=== PATIENT | female | born 1940 | race Caucasian/White ===

== ENCOUNTER → 2017-11-17 09:46 | Outpatient (CLI) | payer MEDICARE, OTHER, SELFPAY ==
--- NOTE | 2017-11-17 10:00 | MM_ITS ---
Bilateral digital screening mammogram with CAD MM Dig screening mamm BI w/CAD . ORDERING PHYSICIAN : Mike Dominguez MD PATIENT AGE: 77 years GENDER: Female COMPARISON: Previous: 2015 and March 2015 and February 2014 bilateral mammogram INDICATION: No hormones. No new complaints. Previous biopsy left breast scar evident Family history. niece with breast cancer TECHNIQUE: Standard CC and MLO images were obtained. R2 CAD reviewed. FINDINGS: Generalized fatty replacement with scattered moderate areas of residual glandular density . RIGHT BREAST:. Stable. There [place] of minimal residual stable glandular tissue. LEFT BREAST:Stable appearance no new finding.. Minor residual linear tissue retroareolar region IMPRESSION: Stable bilateral mammogram with no new areas of significant concern. BI-RADS Category: 2 Benign Finding(s) RECOMMENDED FOLLOW-UP: 1YR - 1 YEAR FOLLOW-UP (A letter has been sent to the patient regarding results of the study.)
== END ==
PROVIDERS: PCP Internal Medicine Adolescent Medicine; Visit Provider Internal Medicine Adolescent Medicine
DX: Z12.31 Encounter for screening mammogram for malignant neoplasm of breast (principal)
CPT/HCPCS: 77067

== ENCOUNTER → 2018-01-23 08:19 | Outpatient (CLI) | payer MEDICARE, OTHER, SELFPAY ==
[2018-01-23 13:40] LABS: Basophils % 0.3 % (0.1-2.0); Eosinophils # 0.3 K/mm3 (0.0-0.4); Eosinophils % 3.7 % (0.1-12.0); Hematocrit 34.1 % (37.0-47.0); Hemoglobin 10.7 g/dL (12.2-16.2); Lymphocytes # 2.1 K/mm3 (0.7-4.5); Lymphocytes % 29.6 K/mm3 (10-50); Mean Corpuscular HGB Conc 31.5 g/dL (31.8-35.4); Mean Corpuscular Hemoglobin 29.6 pg (27.0-31.2); Mean Corpuscular Volume 94.1 fl (81-99); Mean Platelet Volume 8.5 fl (7.4-10.4); Monocytes # 0.4 K/mm3 (0.1-1.0); Monocytes % 5.6 % (1.7-9.3); Neutrophils # 4.3 K/mm3 (1.8-7.8); Neutrophils % 60.9 % (37.0-80.0); Platelet Count 241 K/mm3 (142-424); Red Blood Count 3.62 M/mm3 (4.20-5.40)
[2018-01-23 13:46] LABS: Anion Gap 11.9 mEq/L (5-15); Blood Urea Nitrogen 25 mg/dL (7-18); Carbon Dioxide 30 mmol/L (21.0-32.0); Chloride 108 mmol/L (98-107); Creatinine,Serum 1.06 mg/dL (0.55-1.02); Estimated Glomerular Filt Rate 50 ml/min (>60); GFR (African American) 61 ML/MIN (>60); Glucose 100 mg/dL (74-106); Potassium 3.9 mmoL/L (3.5-5.1); Sodium 146 mmol/L (136-145)
[2018-01-23 14:00] LABS: Thyroid Stimulating Hormone 0.59 uIU/ml (0.358-3.740)
== END ==
PROVIDERS: Internal Medicine Adolescent Medicine; Visit Provider Internal Medicine
DX: D64.9 Anemia, unspecified (principal); E03.9 Hypothyroidism, unspecified
CPT/HCPCS: 36415; 80048; 84443; 85025

== ENCOUNTER → 2018-01-25 12:24 | Outpatient (CLI) | payer MEDICARE, OTHER, SELFPAY ==
--- NOTE | 2018-01-25 12:44 | XR_ITS ---
XR chest 2V HISTORY: ITS.REASON: ANEMIA ORDERING PHYSICIAN: Beau Mistry MD PATIENT AGE: 77 years COMPARISON: 03/29/2017 FINDINGS: Cardiac size is upper limits of normal. No CHF. No lobar consolidation or collapse. Calcified nodes are present in the subcarinal region. No acute bony anomalies. IMPRESSION: As above, no acute finding.
[2018-01-25 15:26] LABS: Ferritin 60 ng/mL (8-388); Free T4 (Free Thyroxine) 1.29 ng/dl (0.76-1.46); Thyroid Stimulating Hormone 0.37 uIU/ml (0.358-3.740)
[2018-01-26 08:25] LABS: Iron 93 ug/dL (27-139); UIBC 235 ug/dL (118-369)
[2018-01-27 15:19] LABS: Erythropoietin 17.8 mIU/mL (2.6-18.5); Iron Saturation 28 % (15-55)
== END ==
PROVIDERS: PCP Internal Medicine Adolescent Medicine; Visit Provider Internal Medicine
DX: D64.9 Anemia, unspecified (principal)
CPT/HCPCS: 36415; 71046; 82668; 82728; 83550; 84439; 84443

== ENCOUNTER → 2018-02-13 09:59 | Outpatient (CLI) | payer MEDICARE, OTHER, SELFPAY ==
--- NOTE | 2018-02-13 10:30 | CA_ITS ---
PROCEDURE: 2-D M-mode and color Doppler study INDICATIONS FOR THE TEST: Chest pain COPD Heart Murmur Tobacco Smoking Palpitations Fatigue Syncope Edema HypertensionXDiabetes Mellitus Rheumatic Fever SOB JAIMES Obesity Hyperlipidemia Family History HD Additional History CARDIOMEGALY PATIENT INFORMATION HEIGHT: 60 WEIGHT:151 GENDER: Female B/P:187/87 2-D/M-MODE INTERPRETATION: 2-D MEASUREMENTS OBSERVED VALUES IN CMS Right Ventricular Dimension (RVDd) 2.5 Interventricular Septum (Thickness)(IVsd) .9 Left Ventricular Internal Dimensions(LVIDd) 5.0 Left Ventricular Posterior Wall (Thickness)(LVPWd) 1.0 Aortic Root 3.5 Aortic Cusp Separation 1.8 Left Atrial Dimensions (LAD) 2.5 2D 1. Technically difficult study because of the patient's factor and poor acoustic windows 2. The left atrium is mildly enlarged, left ventricle is normal size, there is mild concentric left ventricular hypertrophy, visually estimated ejection fraction 50% with no obvious regional wall motion abnormality, endocardial subsequent poorly visualized. 3. The right atrium and right ventricle are relatively normal size and function. 4. The aortic valve is minimally thickened and fibrosed. 5. The mitral and tricuspid valve leaflets are minimally thickened. 6. No significant pericardial effusion noted. 7. Pulmonic valve is poorly visualized. DOPPLER INTERROGATION: Doppler interrogation of the aortic, mitral and tricuspid valvular presence of mild mitral and tricuspid regurgitation, tricuspid and jet velocity insufficient for calculation of the right ventricular systolic pressure. Diastolic parameters are inconclusive. CONCLUSION: 1. Technically difficult study because of the patient's factor and poor acoustic Windows endocardial surface of poorly visualized. 2. Mildly enlarged left atrium, normal left ventricular size, mild concentric left ventricular hypertrophy, visually estimated ejection fraction 50% with no obvious regional wall motion abnormality, diastolic parameters are inconclusive. 3. Mild mitral and tricuspid regurgitation 4. No significant pericardial effusion noted.
--- NOTE | 2018-02-13 11:01 | XR_ITS ---
XR DEXA axial skeleton COMPARISON: None HISTORY: Patient is postmenopausal and takes vitamin D and Fosamax TECHNIQUE: DEXA scanning lumbar spine and hips FINDINGS: The areas BMD lumbar spine L1-L4 is 1.133 g centimeters squared with a T score of -0.4. The total BMD left hip is 0.794 g centimeters square with T score of -1.7. The left femoral neck is 0.777 g centimeters squared and the T score of -1.9. Values for the right hip are similar. IMPRESSION: Normal lumbar spine, findings in the osteopenia range for both hips, consider follow-up study in 2 years
== END ==
PROVIDERS: PCP Internal Medicine Adolescent Medicine; Visit Provider Internal Medicine Adolescent Medicine
DX: I51.7 Cardiomegaly (principal); Z78.0 Asymptomatic menopausal state; Z13.820 Encounter for screening for osteoporosis
CPT/HCPCS: 77080; 93306

== ENCOUNTER → 2018-03-06 09:49 | Outpatient (CLI) | payer MEDICARE, OTHER, SELFPAY ==
[2018-03-06 10:59] VITALS: PULSE 60; PULSE 64
== END ==
PROVIDERS: PCP Internal Medicine Adolescent Medicine; Visit Provider Internal Medicine Adolescent Medicine
DX: J84.10 Pulmonary fibrosis, unspecified (principal)
CPT/HCPCS: 94060; 94640; 94726; 94729

== ENCOUNTER → 2018-03-07 07:18 | Outpatient (CLI) | payer MEDICARE, OTHER, SELFPAY ==
[2018-03-07 13:42] LABS: Basophils % 0.5 % (0.1-2.0); Eosinophils # 0.2 K/mm3 (0.0-0.4); Eosinophils % 3.1 % (0.1-12.0); Hematocrit 34.8 % (37.0-47.0); Hemoglobin 10.9 g/dL (12.2-16.2); Lymphocytes # 1.7 K/mm3 (0.7-4.5); Lymphocytes % 23.4 K/mm3 (10-50); Mean Corpuscular HGB Conc 31.2 g/dL (31.8-35.4); Mean Corpuscular Hemoglobin 29.8 pg (27.0-31.2); Mean Corpuscular Volume 95.6 fl (81-99); Mean Platelet Volume 8.7 fl (7.4-10.4); Monocytes # 0.3 K/mm3 (0.1-1.0); Monocytes % 4.6 % (1.7-9.3); Neutrophils # 4.8 K/mm3 (1.8-7.8); Neutrophils % 68.4 % (37.0-80.0); Platelet Count 233 K/mm3 (142-424); Red Blood Count 3.64 M/mm3 (4.20-5.40); Red Cell Distribution Width 13.6 % (11.5-17.5)
[2018-03-07 13:47] LABS: Alanine Aminotransferase 20 U/L (12-78); Albumin Level 3.4 gm/dL (3.4-5.0); Alkaline Phosphatase 64 U/L (46-116); Aspartate Amino Transferase 18 U/L (15-37); Bilirubin,Total 0.3 mg/dL (0.2-1.0); Blood Urea Nitrogen 19 mg/dL (7-18); Calcium 9.4 mg/dL (8.5-10.1); Carbon Dioxide 28 mmol/L (21.0-32.0); Chloride 107 mmol/L (98-107); Creatinine,Serum 0.99 mg/dL (0.55-1.02); Estimated Glomerular Filt Rate 54 ml/min (>60); GFR (African American) 66 ML/MIN (>60); Globulin 3.4 gm/dl (1.3-3.2); Glucose 109 mg/dL (74-106); Sodium 146 mmol/L (136-145); Total Protein,Serum 6.8 gm/dL (6.4-8.2)
[2018-03-10 12:41] LABS: Erythropoietin 20.3 mIU/mL (2.6-18.5)
== END ==
PROVIDERS: PCP Internal Medicine Adolescent Medicine; Visit Provider Internal Medicine
DX: D64.9 Anemia, unspecified (principal)
CPT/HCPCS: 36415; 80053; 82668; 85025

== ENCOUNTER → 2018-05-10 14:58 | Outpatient (CLI) | payer MEDICARE, OTHER, SELFPAY ==
--- NOTE | 2018-05-10 15:04 | XR_ITS ---
XR ankle LT min 3V HISTORY: ITS.REASON: ACUTE LT ANKLE PAIN ORDERING PHYSICIAN: Christal Holman PATIENT AGE: 78 years Comparison: None FINDINGS: There is a nondisplaced transverse fracture involving the distal shaft of the fibula. This is 4.7 cm proximal to the tip of the fibula. Incidental note is made of pes planus and post surgical changes with 2 screws within the second metatarsal. There is a small calcaneal spur. IMPRESSION: Nondisplaced transverse fracture distal fibular shaft
--- NOTE | 2018-05-10 15:04 | XR_ITS ---
XR foot LT min 3V HISTORY: ITS.REASON: ACUTE LT ANKLE PAIN ORDERING PHYSICIAN: Christal Holman PATIENT AGE: 78 years COMPARISON: None FINDINGS: Postsurgical changes are present involving the first metatarsal with 2 screws in proximal to mid shaft of the first metatarsal. There is minimal lateral angulation of the distal aspect of the first metatarsal. The distal aspect of the proximal phalanx of the fifth toe is missing and could be congenital or postsurgical. No acute fracture or dislocation. There is pes planus. IMPRESSION: 1. No acute finding. 2. Postsurgical change.
== END ==
PROVIDERS: PCP Internal Medicine Adolescent Medicine; Visit Provider Nurse Practitioner Family
DX: M25.572 Pain in left ankle and joints of left foot (principal)
CPT/HCPCS: 73610; 73630

== ENCOUNTER 2018-05-15 12:38 | Outpatient (RCR) | payer MEDICARE, OTHER, SELFPAY | END 2018-05-15 13:45 | disposition home or self-care (01) | LOC: PT 12:38 | PROVIDERS: Visit Provider Orthopaedic Surgery | DX: S82.425A Nondisplaced transverse fracture of shaft of left fibula, initial encounter for closed fracture | CPT/HCPCS: 97760 ==

== ENCOUNTER → 2018-06-13 13:47 | Outpatient (CLI) | payer MEDICARE, OTHER, SELFPAY ==
--- NOTE | 2018-06-13 13:49 | XR_ITS ---
XR ankle LT min 3V HISTORY: Follow-up fracture ITS.REASON: LEFT ANKLE FX ORDERING PHYSICIAN: Mohan Berry MD PATIENT AGE: 78 years Comparison: 05/10/2018 FINDINGS: Increasing callus formation is present at the distal shaft of the fibula consistent with healing nondisplaced fracture. 2 screws are present in the proximal aspect of the first metatarsal. IMPRESSION: Healing nondisplaced fracture distal shaft of the fibula
== END ==
PROVIDERS: PCP Internal Medicine Adolescent Medicine; Visit Provider Orthopaedic Surgery
DX: S82.892A Other fracture of left lower leg, initial encounter for closed fracture (principal)
CPT/HCPCS: 73610

== ENCOUNTER → 2018-07-03 07:47 | Outpatient (CLI) | payer MEDICARE, OTHER, SELFPAY ==
[2018-07-03 14:26] LABS: Basophils % 0.3 % (0.1-2.0); Eosinophils # 0.3 K/mm3 (0.0-0.4); Eosinophils % 3.7 % (0.1-12.0); Hematocrit 32.1 % (37.0-47.0); Hemoglobin 10.5 g/dL (12.2-16.2); Lymphocytes # 1.3 K/mm3 (0.7-4.5); Mean Corpuscular HGB Conc 32.7 g/dL (31.8-35.4); Mean Corpuscular Hemoglobin 29.7 pg (27.0-31.2); Mean Corpuscular Volume 90.6 fl (81-99); Mean Platelet Volume 8.8 fl (7.4-10.4); Monocytes # 0.3 K/mm3 (0.1-1.0); Platelet Count 245 K/mm3 (142-424); Red Blood Count 3.54 M/mm3 (4.20-5.40); Red Cell Distribution Width 13.9 % (11.5-17.5); White Blood Count 7.9 K/mm3 (4.8-10.8)
[2018-07-03 15:06] LABS: Alanine Aminotransferase 20 U/L (12-78); Albumin Level 3.2 gm/dL (3.4-5.0); Alkaline Phosphatase 86 U/L (46-116); Aspartate Amino Transferase 16 U/L (15-37); Bilirubin,Total 0.5 mg/dL (0.2-1.0); Blood Urea Nitrogen 23 mg/dL (7-18); Calcium 9.1 mg/dL (8.5-10.1); Carbon Dioxide 28 mmol/L (21.0-32.0); Chloride 106 mmol/L (98-107); Creatinine,Serum 1.07 mg/dL (0.55-1.02); Estimated Glomerular Filt Rate 49 ml/min (>60); GFR (African American) 60 ML/MIN (>60); Globulin 3.2 gm/dl (1.3-3.2); Glucose 111 mg/dL (74-106); Sodium 143 mmol/L (136-145); Total Protein,Serum 6.4 gm/dL (6.4-8.2)
[2018-07-05 10:57] LABS: Erythropoietin 21.2 mIU/mL (2.6-18.5)
== END ==
PROVIDERS: Visit Provider Internal Medicine
DX: D64.9 Anemia, unspecified (principal)
CPT/HCPCS: 36415; 80053; 82668; 85025

== ENCOUNTER → 2018-07-13 12:10 | Outpatient (CLI) | payer MEDICARE, OTHER, SELFPAY ==
--- NOTE | 2018-07-13 12:13 | XR_ITS ---
XR ankle LT min 3V HISTORY: Follow-up fracture ITS.REASON: Left ankle fracture ORDERING PHYSICIAN: Mohan Berry MD PATIENT AGE: 78 years Comparison: 06/13/2018 FINDINGS: Healing fracture is noted involving the distal shaft of the fibula. Callus formation is present and has increased. There remains good alignment of the fracture fragments. The ankle mortise does not appear widened. Mild pes planus. Calcaneal spurs once again noted in their are postsurgical changes of the first metatarsal. IMPRESSION: Healing distal fibular fracture with good alignment
== END ==
PROVIDERS: PCP Internal Medicine Adolescent Medicine; Visit Provider Orthopaedic Surgery
DX: S82.892A Other fracture of left lower leg, initial encounter for closed fracture (principal)
CPT/HCPCS: 73610

== ENCOUNTER 2018-07-13 13:25 | Outpatient (RCR) | payer MEDICARE, OTHER, SELFPAY | END 2018-07-13 13:26 | disposition home or self-care (01) | LOC: PT 13:25 | PROVIDERS: PCP Internal Medicine Adolescent Medicine; Visit Provider Orthopaedic Surgery | DX: S82.892A Other fracture of left lower leg, initial encounter for closed fracture (principal) | CPT/HCPCS: 97760 ==

== ENCOUNTER → 2018-08-09 12:17 | Outpatient (CLI) | payer MEDICARE, OTHER, SELFPAY ==
--- NOTE | 2018-08-09 12:21 | XR_ITS ---
XR ankle LT min 3V HISTORY: Follow-up fracture ITS.REASON: follow up; out of cam walker ORDERING PHYSICIAN: Severo Mcmanus MD PATIENT AGE: 78 years Comparison: 07/13/2018 FINDINGS: Healing nondisplaced fracture most distal shaft of the fibula. Fracture line may be slightly less apparent compared to the previous exam. There is good alignment with overlying callus formation. The ankle mortise does not appear widened. There is pes planus. Prior surgery of the first metatarsal. IMPRESSION: Healing nondisplaced fracture of the distal fibula
== END ==
PROVIDERS: PCP Internal Medicine Adolescent Medicine; Visit Provider Orthopaedic Surgery
DX: S82.892A Other fracture of left lower leg, initial encounter for closed fracture (principal)
CPT/HCPCS: 73610

== ENCOUNTER → 2018-09-12 13:38 | Outpatient (CLI) | payer MEDICARE, OTHER, SELFPAY ==
[2018-09-12 13:58] LABS: Blood Urea Nitrogen 25 mg/dL (7-18); Creatinine,Serum 1.09 mg/dL (0.55-1.02); Estimated Glomerular Filt Rate 48 ml/min (>60); GFR (African American) 59 ML/MIN (>60)
--- NOTE | 2018-09-12 14:27 | CT_ITS ---
CT chest w con HISTORY: Pulmonary fibrosis, chest pain, shortness of air ITS.REASON: PULMONARY FIBROSIS ORDERING PHYSICIAN: Mohan Cruz MD PATIENT AGE: 78 years COMPARISON: 06/09/2017 TECHNIQUE: Axial images obtained following the administration of 75 mL of Isovue 370 . Sagittal, and coronal reformatted images are also generated and reviewed. All CT scans at the facility use one or more dose reduction, viz: automated exposure control, ma/kV adjustment per patient size (including targeted exams where dose is matched to indication, i.e. head), or iterative reconstruction technique. FINDINGS: There are scattered small lymph nodes in the mediastinum measuring up to 1.4 x 1 cm. These are slightly more prominent than when compared to the previous study. Calcified subcarinal and right hilar lymph nodes are present as before. No evidence of thoracic aortic aneurysm or dissection. No central pulmonary embolus apparent. Normal heart size with no evidence of pericardial effusion. Calcified granuloma right lower lobe. There are scattered subpleural fibrotic changes in both lungs. These findings are somewhat progressed compared to the previous exam are most prominent in the lung bases. No lobar consolidation or collapse. No suspicious pulmonary nodules. Upper abdominal images are unremarkable. IMPRESSION: 1. Mild pulmonary fibrotic changes which appears slightly worse compared to the previous exam 2. Scattered small mediastinal lymph nodes slightly more prominent
--- NOTE | 2018-09-12 14:31 | HMH.ITSHM ---
Current Home Medications as stated by this patient Chelly Magallon or representative personal service. []SYNTHYROID,METFORMIN,ZEBETA
== END ==
PROVIDERS: PCP Internal Medicine Adolescent Medicine; Visit Provider Internal Medicine Adolescent Medicine
DX: J84.10 Pulmonary fibrosis, unspecified (principal)
CPT/HCPCS: 36415; 71260; 82565; 84520; Q9967

== ENCOUNTER → 2018-11-28 10:03 | Outpatient (POV) | payer MEDICARE, OTHER, SELFPAY | PROVIDERS: Visit Provider Internal Medicine | DX: Z00.00 Encounter for general adult medical examination without abnormal findings (principal) ==

== ENCOUNTER → 2019-01-23 08:30 | Outpatient (CLI) | payer MEDICARE, OTHER, SELFPAY ==
--- NOTE | 2019-01-23 08:35 | CT_ITS ---
CT chest wo con HISTORY: Shortness of air, pulmonary fibrosis ITS.REASON: PULMONARY FIBROSIS ORDERING PHYSICIAN: Mohan Brandon MD PATIENT AGE: 78 years COMPARISON: 09/12/2018 Technique: Axial images obtained without contrast. Sagittal, and coronal reformatted images are also generated and reviewed. All CT scans at the facility use one or more dose reduction, viz: automated exposure control, ma/kV adjustment per patient size (including targeted exams where dose is matched to indication, i.e. head), or iterative reconstruction technique. FINDINGS: There are scattered small mediastinal lymph nodes which are not significantly changed. Normal heart size without evidence of pericardial effusion. There is a small hiatal hernia. Small hilar lymph nodes are present. Some of the mediastinal and hilar nodes are calcified. There is mild ectasia of the distal descending thoracic aorta measuring 3.2 cm at the thoracic/abdominal aortic junction previously measuring approximately 2.7 cm.. No evidence of acute hemorrhage. Scattered areas peripheral pulmonary fibrotic changes are once again noted which are mostly unchanged. A new small area of fibrotic changes present in the right upper lobe posterior medially and may represent a small area of atelectasis or infiltrate as seen on axial image #23. There is a stable 3 mm nodule in the right upper lobe posteriorly. There is mild bronchiectasis in the lung bases. This is not significantly changed. IMPRESSION: 1. Mild pulmonary fibrotic changes overall not significant change. One small area of increased density is developed in the right upper lobe medially at the as ago esophageal recess and could be due to a small area of atelectasis or infiltrate versus a small area of fibrosis. Mild bronchiectasis in the lung bases unchanged 2. Mild ectasia of the lower thoracic aorta/thoracic abdominal aortic junction at 3.2 cm previously at 2.7 cm
[2019-01-23 10:00] VITALS: PULSE 70; PULSE 71
[2019-01-23 10:25] VITALS: BP 120/82; BP 140/86; PULSE 71; PULSE 92; RESP 16; RESP 20; O2SAT 84; O2SAT 94
== END ==
PROVIDERS: PCP Internal Medicine Adolescent Medicine; Visit Provider Internal Medicine
DX: R06.02 Shortness of breath (principal); J84.10 Pulmonary fibrosis, unspecified
CPT/HCPCS: 71250; 94060; 94618; 94640; 94726; 94729

== ENCOUNTER → 2019-03-13 11:53 | Outpatient (POV) | payer MEDICARE, OTHER, SELFPAY | PROVIDERS: Visit Provider Internal Medicine | DX: Z00.00 Encounter for general adult medical examination without abnormal findings (principal) ==

== ENCOUNTER 2019-08-27 09:45 | Outpatient (CLI) | payer MEDICARE, OTHER, SELFPAY ==
[2019-08-27 09:47] VITALS: BMI 27.1
[2019-08-27 10:07] LABS: Basophils % 0.6 % (0.1-2.0); Eosinophils # 0.2 K/mm3 (0.0-0.4); Hematocrit 36.6 % (37.0-47.0); Lymphocytes # 1.5 K/mm3 (0.7-4.5); Lymphocytes % 23.8 % (10-50); Mean Corpuscular Hemoglobin 29.7 pg (27.0-31.2); Mean Corpuscular Volume 98.8 fl (81-99); Mean Platelet Volume 8.4 fl (7.4-10.4); Monocytes # 0.4 K/mm3 (0.1-1.0); Monocytes % 5.7 % (1.7-9.3); Neutrophils # 4.2 K/mm3 (1.8-7.8); Neutrophils % 66.9 % (37.0-80.0); Platelet Count 193 K/mm3 (142-424); Red Cell Distribution Width 14.1 % (11.5-17.5); White Blood Count 6.3 K/mm3 (4.8-10.8)
[2019-08-27 10:29] LABS: Alanine Aminotransferase 20 U/L (12-78); Albumin Level 3.3 gm/dL (3.4-5.0); Alkaline Phosphatase 62 U/L (46-116); Anion Gap 10.8 mEq/L (5-15); Aspartate Amino Transferase 18 U/L (15-37); Bilirubin,Total 0.6 mg/dL (0.2-1.0); Blood Urea Nitrogen 17 mg/dL (7-18); Calcium 8.7 mg/dL (8.5-10.1); Carbon Dioxide 29 mmol/L (21.0-32.0); Chloride 107 mmol/L (98-107); Creatinine Clearance Estimated 45 mL/min (50-200); Creatinine,Serum 0.95 mg/dL (0.55-1.02); Estimated Glomerular Filt Rate 57 ml/min (>60); GFR (African American) 68 ML/MIN (>60); Globulin 3.3 gm/dl (1.3-3.2); Glucose 101 mg/dL (74-106); Potassium 3.8 mmoL/L (3.5-5.1); Sodium 143 mmol/L (136-145); Total Protein,Serum 6.6 gm/dL (6.4-8.2)
[2019-08-27 10:58] VITALS: BP 138/73; PULSE 61; RESP 18; TEMP 36.4; O2SAT 98
[2019-08-27 11:28] VITALS: BP 146/66; PULSE 49; RESP 20; O2SAT 98
[2019-08-27 11:58] VITALS: BP 139/67; PULSE 58; RESP 20; O2SAT 97
[2019-08-27 12:15] VITALS: BP 141/64; PULSE 52; RESP 20; O2SAT 98
== END 2019-08-27 12:15 | disposition home or self-care (01) ==
LOC: INF 09:45
PROVIDERS: Visit Provider Nurse Practitioner Family
DX: M05.79 Rheumatoid arthritis with rheumatoid factor of multiple sites without organ or systems involvement (principal)
CPT/HCPCS: 80053; 85025; 96413; J3262

== ENCOUNTER → 2019-09-25 10:03 | Outpatient (POV) | payer MEDICARE, OTHER, SELFPAY | PROVIDERS: PCP Dermatology; Visit Provider Dermatology | DX: Z00.00 Encounter for general adult medical examination without abnormal findings (principal) ==

== ENCOUNTER 2019-09-26 09:17 | Outpatient (CLI) | payer MEDICARE, OTHER, SELFPAY ==
[2019-09-26 09:22] VITALS: BMI 27.1
[2019-09-26 09:41] LABS: Basophils % 0.5 % (0.1-2.0); Eosinophils # 0.2 K/mm3 (0.0-0.4); Eosinophils % 2.6 % (0.1-12.0); Hematocrit 35.6 % (37.0-47.0); Hemoglobin 11.3 g/dL (12.2-16.2); Lymphocytes # 1.5 K/mm3 (0.7-4.5); Lymphocytes % 21.4 % (10-50); Mean Corpuscular HGB Conc 31.6 g/dL (31.8-35.4); Mean Corpuscular Volume 98.1 fl (81-99); Mean Platelet Volume 8.5 fl (7.4-10.4); Monocytes # 0.4 K/mm3 (0.1-1.0); Monocytes % 5.5 % (1.7-9.3); Neutrophils # 4.9 K/mm3 (1.8-7.8); Neutrophils % 69.9 % (37.0-80.0); Platelet Count 217 K/mm3 (142-424); Red Blood Count 3.63 M/mm3 (4.20-5.40); Red Cell Distribution Width 13.2 % (11.5-17.5)
[2019-09-26 09:48] LABS: Alanine Aminotransferase 16 U/L (12-78); Albumin Level 3.4 gm/dL (3.4-5.0); Alkaline Phosphatase 63 U/L (46-116); Anion Gap 12.8 mEq/L (5-15); Aspartate Amino Transferase 9 U/L (15-37); Bilirubin,Total 0.6 mg/dL (0.2-1.0); Blood Urea Nitrogen 21 mg/dL (7-18); Calcium 8.7 mg/dL (8.5-10.1); Carbon Dioxide 28 mmol/L (21.0-32.0); Chloride 105 mmol/L (98-107); Creatinine Clearance Estimated 45 mL/min (50-200); Creatinine,Serum 0.97 mg/dL (0.55-1.02); Estimated Glomerular Filt Rate 55 ml/min (>60); GFR (African American) 67 ML/MIN (>60); Globulin 3.3 gm/dl (1.3-3.2); Glucose 100 mg/dL (74-106); Potassium 3.8 mmoL/L (3.5-5.1); Sodium 142 mmol/L (136-145); Total Protein,Serum 6.7 gm/dL (6.4-8.2)
[2019-09-26 10:30] VITALS: BP 135/77; PULSE 66; RESP 18; TEMP 36.6; O2SAT 96
[2019-09-26 11:00] VITALS: BP 131/82; PULSE 67; RESP 18; O2SAT 97
[2019-09-26 11:30] VITALS: BP 134/76; PULSE 68; RESP 18; O2SAT 97
[2019-09-26 11:45] VITALS: BP 130/74; PULSE 65; RESP 18; O2SAT 97
== END 2019-09-26 11:45 | disposition home or self-care (01) ==
LOC: INF 09:17
PROVIDERS: Visit Provider Nurse Practitioner Family
DX: M05.79 Rheumatoid arthritis with rheumatoid factor of multiple sites without organ or systems involvement (principal)
CPT/HCPCS: 80053; 85025; 96413; J3262

== ENCOUNTER 2019-10-30 08:40 | Outpatient (CLI) | payer MEDICARE, OTHER, SELFPAY ==
[2019-10-30 08:56] VITALS: BMI 27.1
[2019-10-30 09:08] LABS: Basophils % 0.6 % (0.1-2.0); Eosinophils # 0.3 K/mm3 (0.0-0.4); Eosinophils % 3.6 % (0.1-12.0); Hematocrit 34.9 % (37.0-47.0); Hemoglobin 11.3 g/dL (12.2-16.2); Lymphocytes # 1.4 K/mm3 (0.7-4.5); Lymphocytes % 19.7 % (10-50); Mean Corpuscular HGB Conc 32.2 g/dL (31.8-35.4); Mean Corpuscular Hemoglobin 31.3 pg (27.0-31.2); Mean Platelet Volume 8.2 fl (7.4-10.4); Monocytes # 0.5 K/mm3 (0.1-1.0); Monocytes % 6.8 % (1.7-9.3); Neutrophils # 4.8 K/mm3 (1.8-7.8); Neutrophils % 69.3 % (37.0-80.0); Platelet Count 252 K/mm3 (142-424); White Blood Count 6.9 K/mm3 (4.8-10.8)
[2019-10-30 09:21] LABS: Alanine Aminotransferase 15 U/L (12-78); Albumin Level 3.1 gm/dL (3.4-5.0); Albumin/Globulin Ratio 0.8 (1.1-1.8); Alkaline Phosphatase 73 U/L (46-116); Anion Gap 12.5 mEq/L (5-15); Aspartate Amino Transferase 12 U/L (15-37); Bilirubin,Total 0.4 mg/dL (0.2-1.0); Blood Urea Nitrogen 21 mg/dL (7-18); Calcium 8.9 mg/dL (8.5-10.1); Carbon Dioxide 29 mmol/L (21.0-32.0); Chloride 105 mmol/L (98-107); Creatinine Clearance Estimated 44 mL/min (50-200); Creatinine,Serum 1.02 mg/dL (0.55-1.02); Estimated Glomerular Filt Rate 52 ml/min (>60); GFR (African American) 63 ML/MIN (>60); Globulin 3.8 gm/dl (1.3-3.2); Glucose 111 mg/dL (74-106); Potassium 3.5 mmoL/L (3.5-5.1); Sodium 143 mmol/L (136-145); Total Protein,Serum 6.9 gm/dL (6.4-8.2)
[2019-10-30 10:00] VITALS: BP 126/64; PULSE 64; RESP 18; O2SAT 98
[2019-10-30 10:15] VITALS: BP 151/77; PULSE 75; RESP 18
[2019-10-30 10:30] VITALS: BP 139/73; PULSE 58; RESP 18
[2019-10-30 10:45] VITALS: BP 125/73; PULSE 64; RESP 16
[2019-10-30 11:03] VITALS: BP 146/50; PULSE 66; RESP 18
[2019-10-30 11:25] VITALS: BP 132/71; PULSE 66; RESP 18
== END 2019-10-30 11:25 | disposition home or self-care (01) ==
LOC: INF 08:40
PROVIDERS: Visit Provider Nurse Practitioner Family
DX: M05.79 Rheumatoid arthritis with rheumatoid factor of multiple sites without organ or systems involvement (principal)
CPT/HCPCS: 80053; 85025; 96413; J3262

== ENCOUNTER 2019-11-26 08:40 | Outpatient (CLI) | payer MEDICARE, OTHER, SELFPAY ==
[2019-11-26 08:41] VITALS: BMI 27.1
[2019-11-26 08:56] LABS: Basophils % 0.6 % (0.1-2.0); Eosinophils # 0.1 K/mm3 (0.0-0.4); Hematocrit 36.2 % (37.0-47.0); Hemoglobin 11.7 g/dL (12.2-16.2); Lymphocytes # 1.4 K/mm3 (0.7-4.5); Lymphocytes % 19.5 % (10-50); Mean Corpuscular HGB Conc 32.4 g/dL (31.8-35.4); Mean Corpuscular Hemoglobin 31.5 pg (27.0-31.2); Monocytes # 0.4 K/mm3 (0.1-1.0); Monocytes % 5.4 % (1.7-9.3); Neutrophils # 5.1 K/mm3 (1.8-7.8); Neutrophils % 72.5 % (37.0-80.0); Platelet Count 180 K/mm3 (142-424); Red Blood Count 3.73 M/mm3 (4.20-5.40)
[2019-11-26 09:12] LABS: Alanine Aminotransferase 14 U/L (12-78); Albumin Level 3.4 gm/dL (3.4-5.0); Albumin/Globulin Ratio 1.1 (1.1-1.8); Alkaline Phosphatase 67 U/L (46-116); Anion Gap 11.6 mEq/L (5-15); Aspartate Amino Transferase 10 U/L (15-37); Bilirubin,Total 0.7 mg/dL (0.2-1.0); Blood Urea Nitrogen 20 mg/dL (7-18); Carbon Dioxide 29 mmol/L (21.0-32.0); Chloride 106 mmol/L (98-107); Creatinine Clearance Estimated 45 mL/min (50-200); Creatinine,Serum 0.94 mg/dL (0.55-1.02); Estimated Glomerular Filt Rate 57 ml/min (>60); GFR (African American) 69 ML/MIN (>60); Globulin 3.2 gm/dl (1.3-3.2); Glucose 97 mg/dL (74-106); Potassium 3.6 mmoL/L (3.5-5.1); Sodium 143 mmol/L (136-145); Total Protein,Serum 6.6 gm/dL (6.4-8.2)
[2019-11-26 10:00] VITALS: BP 149/70; PULSE 68; RESP 18; O2SAT 98
[2019-11-26 10:15] VITALS: BP 138/68; PULSE 59; RESP 18
[2019-11-26 10:30] VITALS: BP 131/67; PULSE 65; RESP 18
[2019-11-26 10:45] VITALS: BP 148/64; PULSE 63; RESP 18
[2019-11-26 11:03] VITALS: BP 136/74; PULSE 61; RESP 18
[2019-11-26 11:25] VITALS: BP 158/65; PULSE 72; RESP 18
== END 2019-11-26 11:25 | disposition home or self-care (01) ==
LOC: INF 08:40
PROVIDERS: Visit Provider Nurse Practitioner Family
DX: M05.29 Rheumatoid vasculitis with rheumatoid arthritis of multiple sites (principal)
CPT/HCPCS: 80053; 85025; 96413; J3262

== ENCOUNTER 2019-12-24 08:50 | Outpatient (CLI) | payer MEDICARE, OTHER, SELFPAY ==
[2019-12-24 08:52] VITALS: BMI 27.1
[2019-12-24 09:05] LABS: Basophils # 0.1 K/mm3 (0-0.2); Basophils % 0.6 % (0.1-2.0); Eosinophils # 0.3 K/mm3 (0.0-0.4); Hematocrit 35.7 % (37.0-47.0); Hemoglobin 11.5 g/dL (12.2-16.2); Lymphocytes # 1.5 K/mm3 (0.7-4.5); Lymphocytes % 16.1 % (10-50); Mean Corpuscular HGB Conc 32.1 g/dL (31.8-35.4); Mean Corpuscular Hemoglobin 31.7 pg (27.0-31.2); Mean Corpuscular Volume 98.8 fl (81-99); Mean Platelet Volume 7.8 fl (7.4-10.4); Monocytes # 0.5 K/mm3 (0.1-1.0); Monocytes % 5.9 % (1.7-9.3); Neutrophils # 6.9 K/mm3 (1.8-7.8); Neutrophils % 74.3 % (37.0-80.0); Platelet Count 236 K/mm3 (142-424); Red Blood Count 3.61 M/mm3 (4.20-5.40); Red Cell Distribution Width 12.7 % (11.5-17.5); White Blood Count 9.2 K/mm3 (4.8-10.8)
[2019-12-24 09:18] LABS: Alanine Aminotransferase 18 U/L (12-78); Albumin Level 2.9 gm/dL (3.4-5.0); Albumin/Globulin Ratio 0.7 (1.1-1.8); Alkaline Phosphatase 67 U/L (46-116); Anion Gap 13.8 mEq/L (5-15); Aspartate Amino Transferase 17 U/L (15-37); Bilirubin,Total 0.5 mg/dL (0.2-1.0); Blood Urea Nitrogen 25 mg/dL (7-18); Calcium 9.1 mg/dL (8.5-10.1); Carbon Dioxide 27 mmol/L (21.0-32.0); Chloride 109 mmol/L (98-107); Creatinine Clearance Estimated 42 mL/min (50-200); Creatinine,Serum 1.07 mg/dL (0.55-1.02); Estimated Glomerular Filt Rate 49 ml/min (>60); GFR (African American) 60 ML/MIN (>60); Globulin 3.9 gm/dl (1.3-3.2); Glucose 139 mg/dL (74-106); Potassium 3.8 mmoL/L (3.5-5.1); Sodium 146 mmol/L (136-145); Total Protein,Serum 6.8 gm/dL (6.4-8.2)
[2019-12-24 10:29] VITALS: BP 144/72; PULSE 69; RESP 18; TEMP 36.6; O2SAT 98
[2019-12-24 10:59] VITALS: BP 135/71; PULSE 62; RESP 18; O2SAT 97
[2019-12-24 11:35] VITALS: BP 138/78; PULSE 67; RESP 18; O2SAT 97
== END 2019-12-24 11:35 | disposition home or self-care (01) ==
LOC: INF 08:50
PROVIDERS: Visit Provider Nurse Practitioner Family
DX: M05.79 Rheumatoid arthritis with rheumatoid factor of multiple sites without organ or systems involvement (principal)
CPT/HCPCS: 80053; 85025; 96413; J3262

== ENCOUNTER 2020-01-21 09:58 | Outpatient (CLI) | payer MEDICARE, OTHER, SELFPAY ==
[2020-01-21 10:53] VITALS: BP 118/62; PULSE 74; RESP 18; TEMP 36.6; O2SAT 97
[2020-01-21 11:23] VITALS: BP 138/81; PULSE 58; RESP 18; O2SAT 97
[2020-01-21 11:53] VITALS: BP 116/68; PULSE 61; RESP 18; O2SAT 98
[2020-01-21 12:14] VITALS: BP 119/67; PULSE 65; RESP 18; O2SAT 98
== END 2020-01-21 12:20 | disposition home or self-care (01) ==
LOC: INF 09:58
PROVIDERS: Visit Provider Nurse Practitioner Family
DX: M05.79 Rheumatoid arthritis with rheumatoid factor of multiple sites without organ or systems involvement (principal)
CPT/HCPCS: 96413; J3262

== ENCOUNTER 2020-02-18 08:42 | Outpatient (CLI) | payer MEDICARE, OTHER, SELFPAY ==
[2020-02-18 08:45] VITALS: BMI 27.7
[2020-02-18 09:15] LABS: Basophils % 0.4 % (0.1-2.0); Eosinophils # 0.1 K/mm3 (0.0-0.4); Eosinophils % 1.7 % (0.1-12.0); Hematocrit 37.9 % (37.0-47.0); Hemoglobin 12.5 g/dL (12.2-16.2); Lymphocytes # 1.6 K/mm3 (0.7-4.5); Mean Corpuscular HGB Conc 32.9 g/dL (31.8-35.4); Mean Corpuscular Hemoglobin 31.5 pg (27.0-31.2); Mean Corpuscular Volume 95.6 fl (81-99); Mean Platelet Volume 8.4 fl (7.4-10.4); Monocytes # 0.4 K/mm3 (0.1-1.0); Monocytes % 5.1 % (1.7-9.3); Neutrophils # 6.2 K/mm3 (1.8-7.8); Neutrophils % 73.7 % (37.0-80.0); Platelet Count 211 K/mm3 (142-424); Red Blood Count 3.97 M/mm3 (4.20-5.40); White Blood Count 8.4 K/mm3 (4.8-10.8)
[2020-02-18 09:16] LABS: Chloride 103 mmol/L (98-107); Sodium 138 mmol/L (136-145)
[2020-02-18 09:17] LABS: Potassium 3.7 mmoL/L (3.5-5.1)
[2020-02-18 09:19] LABS: Alanine Aminotransferase 18 U/L (12-78); Alkaline Phosphatase 59 U/L (38-126); Anion Gap 9.7 mEq/L (5-15); Aspartate Amino Transferase 25 U/L (14-36); Bilirubin,Total 0.4 mg/dl (0.2-1.3); Blood Urea Nitrogen 27 mg/dl (7-17); Carbon Dioxide 29 mmol/L (22.0-30.0); Creatinine Clearance Estimated 46 mL/min (50-200); Estimated Glomerular Filt Rate 60 ml/min (>60); GFR (African American) 73 ML/MIN (>60)
[2020-02-18 09:20] LABS: Albumin Level 3.8 g/dl (3.5-5.0); Albumin/Globulin Ratio 1.2 (1.1-1.8); Calcium 9.7 mg/dl (8.4-10.2); Globulin 3.1 g/dL (1.3-3.2); Glucose 143 mg/dl (74-100); Total Protein,Serum 6.9 g/dl (6.3-8.2)
[2020-02-18 09:49] VITALS: BP 124/67; PULSE 75; RESP 18; TEMP 36.3; O2SAT 96
[2020-02-18 10:19] VITALS: BP 119/62; PULSE 79; RESP 18; O2SAT 97
[2020-02-18 10:49] VITALS: BP 121/64; PULSE 76; RESP 18; O2SAT 96
[2020-02-18 11:15] VITALS: BP 128/61; PULSE 61; RESP 18; O2SAT 97
== END 2020-02-18 11:15 | disposition home or self-care (01) ==
LOC: INF 08:42
PROVIDERS: Visit Provider Nurse Practitioner Family
DX: M05.79 Rheumatoid arthritis with rheumatoid factor of multiple sites without organ or systems involvement (principal)
CPT/HCPCS: 80053; 85025; 96413; J3262

== ENCOUNTER 2020-03-17 08:43 | Outpatient (CLI) | payer MEDICARE, OTHER, SELFPAY ==
[2020-03-17 09:30] VITALS: BP 126/69; PULSE 62; RESP 18; TEMP 36.7; O2SAT 100
[2020-03-17 09:45] VITALS: BP 143/71; PULSE 55; RESP 18
[2020-03-17 10:00] VITALS: BP 149/69; PULSE 56; RESP 18
[2020-03-17 10:15] VITALS: BP 141/66; PULSE 59; RESP 18
[2020-03-17 10:30] VITALS: BP 139/70; PULSE 59; RESP 18
[2020-03-17 10:55] VITALS: BP 145/72; PULSE 55; RESP 18
== END 2020-03-17 10:55 | disposition home or self-care (01) ==
LOC: INF 08:43
PROVIDERS: Visit Provider Nurse Practitioner Family
DX: M05.79 Rheumatoid arthritis with rheumatoid factor of multiple sites without organ or systems involvement (principal)
CPT/HCPCS: 96413; 96415; J3262

== ENCOUNTER 2020-04-14 08:50 | Outpatient (CLI) | payer MEDICARE, OTHER, SELFPAY ==
[2020-04-14 08:50] VITALS: BMI 27.3
[2020-04-14 09:13] LABS: Basophils # 0.1 K/mm3 (0-0.2); Basophils % 0.7 % (0.1-2.0); Eosinophils # 0.3 K/mm3 (0.0-0.4); Hematocrit 36.7 % (37.0-47.0); Hemoglobin 12.4 g/dL (12.2-16.2); Lymphocytes # 1.7 K/mm3 (0.7-4.5); Lymphocytes % 18.6 % (10-50); Mean Corpuscular HGB Conc 33.7 g/dL (31.8-35.4); Mean Corpuscular Hemoglobin 32.7 pg (27.0-31.2); Mean Corpuscular Volume 97.2 fl (81-99); Mean Platelet Volume 8.6 fl (7.4-10.4); Monocytes # 0.6 K/mm3 (0.1-1.0); Monocytes % 6.6 % (1.7-9.3); Neutrophils # 6.4 K/mm3 (1.8-7.8); Neutrophils % 71.2 % (37.0-80.0); Platelet Count 209 K/mm3 (142-424); Red Blood Count 3.78 M/mm3 (4.20-5.40); Red Cell Distribution Width 13.7 % (11.5-17.5)
[2020-04-14 09:23] LABS: Chloride 105 mmol/L (98-107); Sodium 139 mmol/L (136-145)
[2020-04-14 09:24] LABS: Potassium 3.8 mmoL/L (3.5-5.1)
[2020-04-14 09:26] LABS: Alanine Aminotransferase 16 U/L (12-78); Albumin Level 3.6 g/dl (3.5-5.0); Albumin/Globulin Ratio 1.1 (1.1-1.8); Alkaline Phosphatase 59 U/L (38-126); Anion Gap 6.8 mEq/L (5-15); Aspartate Amino Transferase 26 U/L (14-36); Bilirubin,Total 0.7 mg/dl (0.2-1.3); Blood Urea Nitrogen 22 mg/dl (7-17); Carbon Dioxide 31 mmol/L (22.0-30.0); Creatinine Clearance Estimated 44 mL/min (50-200); Estimated Glomerular Filt Rate 60 ml/min (>60); GFR (African American) 73 ML/MIN (>60); Globulin 3.2 g/dL (1.3-3.2); Total Protein,Serum 6.8 g/dl (6.3-8.2)
[2020-04-14 09:27] LABS: Calcium 9.3 mg/dl (8.4-10.2); Cholesterol 174 mg/dl (140-200); Glucose 104 mg/dl (74-100); Triglycerides 131 mg/dl (30-150); VLDL Cholesterol 26 mg/dL (0-40)
[2020-04-14 09:28] LABS: Chol/HDL Ratio 3.2 (1-3.5); HDL Cholesterol 55 mg/dl (40-60)
[2020-04-14 09:32] LABS: Hemoglobin A1C 5.8 % (4.0-6.0)
[2020-04-14 09:38] LABS: Direct LDL Cholesterol 107.65 mg/dL (100-129)
[2020-04-14 09:50] VITALS: BP 139/74; PULSE 68; RESP 20; TEMP 36.9; O2SAT 95
[2020-04-14 09:57] LABS: Thyroid Stimulating Hormone 0.05 uIU/mL (0.465-4.68)
[2020-04-14 10:55] VITALS: BP 112/74; PULSE 68; RESP 20; TEMP 36.9; O2SAT 95
== END 2020-04-14 10:55 | disposition home or self-care (01) ==
LOC: INF 08:51
PROVIDERS: Visit Provider Nurse Practitioner Family
DX: M05.79 Rheumatoid arthritis with rheumatoid factor of multiple sites without organ or systems involvement (principal); E11.9 Type 2 diabetes mellitus without complications; E03.9 Hypothyroidism, unspecified; Z79.84 Long term (current) use of oral hypoglycemic drugs
CPT/HCPCS: 80053; 80061; 83036; 84443; 85025; 96365; 96413; J3262

== ENCOUNTER 2020-05-21 08:53 | Outpatient (CLI) | payer MEDICARE, OTHER, SELFPAY ==
[2020-05-21 09:39] VITALS: BP 120/68; PULSE 63; RESP 18; TEMP 36.3; O2SAT 97
[2020-05-21 10:09] VITALS: BP 111/67; PULSE 55; RESP 18; O2SAT 97
[2020-05-21 10:49] VITALS: BP 118/68; PULSE 61; RESP 18; O2SAT 98
== END 2020-05-21 10:50 | disposition home or self-care (01) ==
LOC: INF 08:53
PROVIDERS: Visit Provider Nurse Practitioner Family
DX: M05.79 Rheumatoid arthritis with rheumatoid factor of multiple sites without organ or systems involvement (principal)
CPT/HCPCS: 96413; J3262

== ENCOUNTER 2020-06-18 08:30 | Outpatient (CLI) | payer MEDICARE, OTHER, SELFPAY ==
[2020-06-18 08:42] VITALS: BMI 27.5
[2020-06-18 08:57] LABS: Basophils # 0.1 K/mm3 (0-0.2); Basophils % 0.5 % (0.1-2.0); Eosinophils # 0.2 K/mm3 (0.0-0.4); Eosinophils % 2.2 % (0.1-12.0); Hematocrit 35.1 % (37.0-47.0); Hemoglobin 12.3 g/dL (12.2-16.2); Lymphocytes # 2.6 K/mm3 (0.7-4.5); Lymphocytes % 23.3 % (10-50); Mean Corpuscular HGB Conc 34.9 g/dL (31.8-35.4); Mean Corpuscular Hemoglobin 33.3 pg (27.0-31.2); Mean Corpuscular Volume 95.4 fl (81-99); Monocytes # 0.6 K/mm3 (0.1-1.0); Monocytes % 5.3 % (1.7-9.3); Neutrophils # 7.6 K/mm3 (1.8-7.8); Neutrophils % 68.7 % (37.0-80.0); Platelet Count 216 K/mm3 (142-424); Red Blood Count 3.68 M/mm3 (4.20-5.40); Red Cell Distribution Width 13.7 % (11.5-17.5)
[2020-06-18 09:02] LABS: Alanine Aminotransferase 19 U/L (12-78); Albumin Level 3.5 g/dl (3.5-5.0); Albumin/Globulin Ratio 1.2 (1.1-1.8); Alkaline Phosphatase 61 U/L (38-126); Anion Gap 10.7 mEq/L (5-15); Aspartate Amino Transferase 22 U/L (14-36); Bilirubin,Total 0.3 mg/dl (0.2-1.3); Blood Urea Nitrogen 28 mg/dl (7-17); Calcium 9.1 mg/dl (8.4-10.2); Carbon Dioxide 27 mmol/L (22.0-30.0); Chloride 106 mmol/L (98-107); Creatinine Clearance Estimated 45 mL/min (50-200); Estimated Glomerular Filt Rate 60 ml/min (>60); GFR (African American) 73 ML/MIN (>60); Glucose 115 mg/dl (74-100); Potassium 3.7 mmoL/L (3.5-5.1); Sodium 140 mmol/L (136-145); Total Protein,Serum 6.5 g/dl (6.3-8.2)
[2020-06-18 09:42] VITALS: BP 144/72; PULSE 51; RESP 18; TEMP 36.4; O2SAT 98
[2020-06-18 10:00] VITALS: BP 143/67; PULSE 49; RESP 18
[2020-06-18 10:15] VITALS: BP 145/67; PULSE 57; RESP 18
[2020-06-18 10:30] VITALS: BP 159/71; PULSE 55; RESP 18
[2020-06-18 10:45] VITALS: BP 158/87; PULSE 59; RESP 18
[2020-06-18 11:08] VITALS: BP 159/71; PULSE 55; RESP 18; O2SAT 97
== END 2020-06-18 11:08 | disposition home or self-care (01) ==
LOC: INF 08:40
PROVIDERS: Visit Provider Nurse Practitioner Family
DX: M05.79 Rheumatoid arthritis with rheumatoid factor of multiple sites without organ or systems involvement (principal)
CPT/HCPCS: 80053; 85025; 96413; J3262

== ENCOUNTER 2020-07-18 12:53 | Outpatient (CLI) | payer MEDICARE, OTHER, SELFPAY ==
[2020-07-18 13:55] VITALS: BP 130/73; PULSE 72; RESP 18; TEMP 36.8; O2SAT 97
[2020-07-18 14:25] VITALS: BP 126/69; PULSE 58; RESP 18; O2SAT 97
[2020-07-18 14:55] VITALS: BP 124/65; PULSE 68; RESP 16; TEMP 36.7; O2SAT 98
== END 2020-07-18 15:00 | disposition home or self-care (01) ==
LOC: INF 12:53
PROVIDERS: Visit Provider Nurse Practitioner Family
DX: M05.79 Rheumatoid arthritis with rheumatoid factor of multiple sites without organ or systems involvement (principal)
CPT/HCPCS: 96413; J3262

== ENCOUNTER 2020-08-13 08:40 | Outpatient (CLI) | payer MEDICARE, OTHER, SELFPAY ==
[2020-08-13 08:52] VITALS: BMI 29.0
[2020-08-13 09:08] LABS: Basophils % 0.6 % (0.1-2.0); Eosinophils # 0.2 K/mm3 (0.0-0.4); Eosinophils % 2.9 % (0.1-12.0); Hematocrit 37.5 % (37.0-47.0); Lymphocytes # 1.4 K/mm3 (0.7-4.5); Lymphocytes % 22.1 % (10-50); Mean Corpuscular HGB Conc 32.1 g/dL (31.8-35.4); Mean Corpuscular Hemoglobin 31.5 pg (27.0-31.2); Mean Corpuscular Volume 98.2 fl (81-99); Mean Platelet Volume 7.8 fl (7.4-10.4); Monocytes # 0.4 K/mm3 (0.1-1.0); Monocytes % 6.1 % (1.7-9.3); Neutrophils # 4.5 K/mm3 (1.8-7.8); Neutrophils % 68.4 % (37.0-80.0); Platelet Count 166 K/mm3 (142-424); Red Blood Count 3.82 M/mm3 (4.20-5.40); Red Cell Distribution Width 13.1 % (11.5-17.5); White Blood Count 6.5 K/mm3 (4.8-10.8)
[2020-08-13 09:21] LABS: Alanine Aminotransferase 24 U/L (12-78); Albumin Level 3.7 g/dl (3.5-5.0); Albumin/Globulin Ratio 1.3 (1.1-1.8); Alkaline Phosphatase 45 U/L (38-126); Anion Gap 9.9 mEq/L (5-15); Aspartate Amino Transferase 31 U/L (14-36); Bilirubin,Total 0.4 mg/dl (0.2-1.3); Blood Urea Nitrogen 22 mg/dl (7-17); Calcium 9.5 mg/dl (8.4-10.2); Carbon Dioxide 29 mmol/L (22.0-30.0); Chloride 107 mmol/L (98-107); Creatinine Clearance Estimated 47 mL/min (50-200); Estimated Glomerular Filt Rate 60 ml/min (>60); GFR (African American) 73 ML/MIN (>60); Globulin 2.9 g/dL (1.3-3.2); Glucose 109 mg/dl (74-100); Potassium 3.9 mmoL/L (3.5-5.1); Sodium 142 mmol/L (136-145); Total Protein,Serum 6.6 g/dl (6.3-8.2)
[2020-08-13 09:38] VITALS: BP 126/71; PULSE 55; RESP 18; TEMP 36.4; O2SAT 98
[2020-08-13 09:53] VITALS: BP 133/70; PULSE 52; RESP 18
[2020-08-13 10:08] VITALS: BP 139/68; PULSE 52; RESP 18
[2020-08-13 10:23] VITALS: BP 135/68; PULSE 52; RESP 18
[2020-08-13 10:38] VITALS: BP 143/66; PULSE 52; RESP 18
== END 2020-08-13 11:00 | disposition home or self-care (01) ==
LOC: INF 08:49
PROVIDERS: Visit Provider Nurse Practitioner Family
DX: M05.79 Rheumatoid arthritis with rheumatoid factor of multiple sites without organ or systems involvement (principal); J84.10 Pulmonary fibrosis, unspecified; R05 Cough
CPT/HCPCS: 80053; 85025; 96413; J3262

== ENCOUNTER 2020-09-10 08:35 | Outpatient (CLI) | payer MEDICARE, OTHER, SELFPAY ==
[2020-09-10 09:30] VITALS: BP 132/71; PULSE 57; RESP 18; TEMP 36.4; O2SAT 99
[2020-09-10 09:45] VITALS: BP 135/67; PULSE 55; RESP 16
[2020-09-10 10:00] VITALS: BP 122/61; PULSE 53; RESP 16
[2020-09-10 10:15] VITALS: BP 122/68; PULSE 54; RESP 16
[2020-09-10 10:30] VITALS: BP 117/59; PULSE 55; RESP 18
== END 2020-09-10 10:50 | disposition home or self-care (01) ==
LOC: INF 08:40
PROVIDERS: Visit Provider Nurse Practitioner Family
DX: M05.79 Rheumatoid arthritis with rheumatoid factor of multiple sites without organ or systems involvement (principal); J84.10 Pulmonary fibrosis, unspecified; R05 Cough
CPT/HCPCS: 96413; J3262

== ENCOUNTER 2020-10-08 08:50 | Outpatient (CLI) | payer MEDICARE, OTHER, SELFPAY ==
[2020-10-08 08:53] VITALS: BMI 29.0
[2020-10-08 09:10] LABS: Basophils # 0.1 K/mm3 (0-0.2); Basophils % 0.6 % (0.1-2.0); Eosinophils # 0.2 K/mm3 (0.0-0.4); Eosinophils % 2.2 % (0.1-12.0); Hematocrit 37.2 % (37.0-47.0); Hemoglobin 12.1 g/dL (12.2-16.2); Lymphocytes # 1.4 K/mm3 (0.7-4.5); Lymphocytes % 16.7 % (10-50); Mean Corpuscular HGB Conc 32.4 g/dL (31.8-35.4); Mean Corpuscular Hemoglobin 31.9 pg (27.0-31.2); Mean Corpuscular Volume 98.4 fl (81-99); Mean Platelet Volume 9.3 fl (7.4-10.4); Monocytes # 0.5 K/mm3 (0.1-1.0); Monocytes % 5.9 % (1.7-9.3); Neutrophils # 6.2 K/mm3 (1.8-7.8); Neutrophils % 74.6 % (37.0-80.0); Platelet Count 200 K/mm3 (142-424); Red Blood Count 3.78 M/mm3 (4.20-5.40); Red Cell Distribution Width 14.7 % (11.5-17.5); White Blood Count 8.4 K/mm3 (4.8-10.8)
[2020-10-08 09:18] LABS: Chloride 108 mmol/L (98-107); Potassium 3.9 mmoL/L (3.5-5.1); Sodium 142 mmol/L (136-145)
[2020-10-08 09:21] LABS: Alanine Aminotransferase 20 U/L (12-78); Albumin Level 3.6 g/dl (3.5-5.0); Albumin/Globulin Ratio 1.3 (1.1-1.8); Alkaline Phosphatase 51 U/L (38-126); Anion Gap 9.9 mEq/L (5-15); Aspartate Amino Transferase 29 U/L (14-36); Bilirubin,Total 0.7 mg/dl (0.2-1.3); Blood Urea Nitrogen 24 mg/dl (7-17); Calcium 9.6 mg/dl (8.4-10.2); Carbon Dioxide 28 mmol/L (22.0-30.0); Creatinine Clearance Estimated 47 mL/min (50-200); Estimated Glomerular Filt Rate 60 ml/min (>60); GFR (African American) 73 ML/MIN (>60); Globulin 2.8 g/dL (1.3-3.2); Glucose 96 mg/dl (74-100); Total Protein,Serum 6.4 g/dl (6.3-8.2)
[2020-10-08 10:07] VITALS: BP 118/75; PULSE 54; RESP 18; TEMP 36.4; O2SAT 98
[2020-10-08 10:37] VITALS: BP 128/69; PULSE 60; RESP 16; TEMP 36.4; O2SAT 98
[2020-10-08 11:07] VITALS: BP 130/72; PULSE 60; RESP 18; TEMP 36.6; O2SAT 97
== END 2020-10-08 11:10 | disposition home or self-care (01) ==
LOC: INF 08:50
PROVIDERS: Visit Provider Nurse Practitioner Family
DX: M05.79 Rheumatoid arthritis with rheumatoid factor of multiple sites without organ or systems involvement (principal); J84.10 Pulmonary fibrosis, unspecified; R05 Cough
CPT/HCPCS: 80053; 85025; 96413; J3262

== ENCOUNTER 2020-11-05 09:00 | Outpatient (RCR) | payer MEDICARE, OTHER, SELFPAY | END 2020-11-27 14:21 | disposition home or self-care (01) | LOC: PT.CARL 09:00 | PROVIDERS: PCP Dermatology; Visit Provider Nurse Practitioner Family | DX: M54.2 Cervicalgia (principal) | CPT/HCPCS: 97035; 97110; 97140; 97163 ==

== ENCOUNTER → 2020-11-10 14:57 | Outpatient (CLI) | payer MEDICARE, OTHER, SELFPAY ==
--- NOTE | 2020-11-10 15:01 | CA_ITS ---
APPROVED REPORT Left Lower Extremity Venous Study for DVT. Train Examiner: Abril Walker RVT Indications Lower Extremity Pain: Left LLE CALF PAIN,BURNING Medications Aspirin Vein Imaging CFV (L): compressive, spontaneous, phasic, augmentation FEM (L): compressive, spontaneous, phasic, augmentation POP (L): compressive, spontaneous, phasic, augmentation PTV (L): Compressible GSV (L): Compressible Peroneals (L):Compressible GAS (L): Compressible Findings Study suggests no evidence of DVT of the left lower extremity. Study suggests no evidence of SVT of the left lower extremity. Conclusion Study suggests no evidence of DVT of the left lower extremity. Study suggests no evidence of SVT of the left lower extremity. Critical Notification Date: 11/10/2020 Time: 15:30 Physician Name: Jamilah Cruz's office Electronically signed by : Tejas Hatfield MD 11/11/2020 19:59:14
--- NOTE | 2020-11-10 15:20 | XR_ITS ---
PROCEDURE: XR ANKLE LT MIN 3V CLINICAL INDICATION: LT LEG PAIN COMPARISON: CR ANKCMLT XR ankle LT min 3V from 07/13/2018 and 08/09/2018 FINDINGS: There is a well-healed fracture distal fibula with only minimal cortical thickening at the healed fracture site. The distal tibia and medial malleolus appear normal. There is mild soft tissue swelling both medially and laterally. The ankle mortise appears normal. There is flattening of the plantar arch with a prominent spur of the calcaneus at the insertion of the plantar tendon. There are 2 threaded screws proximal shaft of the 1st metatarsal. IMPRESSION: Healed distal fibular fracture, mild soft tissue swelling but no acute fracture seen Dictated by: Dr. Leonard Browne MD 11/11/2020 10:56 Dr. Leonard Browne MD in [place] 11/11/2020 10:56
== END ==
PROVIDERS: PCP Internal Medicine Adolescent Medicine; Visit Provider Internal Medicine Adolescent Medicine
DX: M79.605 Pain in left leg (principal); M25.572 Pain in left ankle and joints of left foot
CPT/HCPCS: 73610; 93971

== ENCOUNTER 2020-11-12 08:45 | Outpatient (CLI) | payer MEDICARE, OTHER, SELFPAY ==
[2020-11-12 09:40] VITALS: BP 130/68; PULSE 63; RESP 18; TEMP 36.2; O2SAT 99
[2020-11-12 09:55] VITALS: BP 137/75; PULSE 60; RESP 18
[2020-11-12 10:10] VITALS: BP 144/78; PULSE 60; RESP 18
[2020-11-12 10:25] VITALS: BP 145/72; PULSE 57; RESP 18
[2020-11-12 10:40] VITALS: BP 156/71; PULSE 58; RESP 18
== END 2020-11-12 11:05 | disposition home or self-care (01) ==
LOC: INF 08:53
PROVIDERS: Visit Provider Nurse Practitioner Family
DX: J84.10 Pulmonary fibrosis, unspecified (principal); M05.79 Rheumatoid arthritis with rheumatoid factor of multiple sites without organ or systems involvement; R05 Cough
CPT/HCPCS: 96413; J3262

== ENCOUNTER 2020-12-10 08:50 | Outpatient (CLI) | payer MEDICARE, OTHER, SELFPAY ==
[2020-12-10 09:01] VITALS: BMI 28.5
[2020-12-10 09:46] LABS: Basophils % 0.3 % (0.1-2.0); Eosinophils # 0.1 K/mm3 (0.0-0.4); Eosinophils % 1.2 % (0.1-12.0); Hematocrit 37.5 % (37.0-47.0); Hemoglobin 11.9 g/dL (12.2-16.2); Lymphocytes % 11.2 % (10-50); Mean Corpuscular HGB Conc 31.7 g/dL (31.8-35.4); Mean Corpuscular Volume 97.7 fl (81-99); Mean Platelet Volume 8.2 fl (7.4-10.4); Monocytes # 0.6 K/mm3 (0.1-1.0); Monocytes % 6.3 % (1.7-9.3); Neutrophils # 7.6 K/mm3 (1.8-7.8); Platelet Count 169 K/mm3 (142-424); Red Blood Count 3.84 M/mm3 (4.20-5.40); Red Cell Distribution Width 12.9 % (11.5-17.5); White Blood Count 9.4 K/mm3 (4.8-10.8)
[2020-12-10 09:51] LABS: Chloride 103 mmol/L (98-107); Potassium 3.9 mmoL/L (3.5-5.1); Sodium 139 mmol/L (136-145)
[2020-12-10 09:53] LABS: Alanine Aminotransferase 20 U/L (12-78); Aspartate Amino Transferase 23 U/L (14-36); Blood Urea Nitrogen 27 mg/dl (7-17); Creatinine Clearance Estimated 46 mL/min (50-200); Estimated Glomerular Filt Rate 60 ml/min (>60); GFR (African American) 73 ML/MIN (>60)
[2020-12-10 09:54] LABS: Albumin Level 3.9 g/dl (3.5-5.0); Albumin/Globulin Ratio 1.3 (1.1-1.8); Alkaline Phosphatase 47 U/L (38-126); Anion Gap 6.9 mEq/L (5-15); Bilirubin,Total 0.5 mg/dl (0.2-1.3); Calcium 9.7 mg/dl (8.4-10.2); Carbon Dioxide 33 mmol/L (22.0-30.0); Glucose 81 mg/dl (74-100); Total Protein,Serum 6.9 g/dl (6.3-8.2)
[2020-12-10 10:45] VITALS: BP 148/59; PULSE 45; RESP 18; TEMP 36.1; O2SAT 99
[2020-12-10 11:00] VITALS: BP 142/66; PULSE 45; RESP 18
[2020-12-10 11:15] VITALS: BP 149/67; PULSE 46; RESP 18
[2020-12-10 11:30] VITALS: BP 135/66; PULSE 45; RESP 18
[2020-12-10 11:45] VITALS: BP 155/68; PULSE 44; RESP 16
== END 2020-12-10 12:35 | disposition home or self-care (01) ==
LOC: INF 08:57
PROVIDERS: Visit Provider Nurse Practitioner Family
DX: J84.10 Pulmonary fibrosis, unspecified (principal); M05.79 Rheumatoid arthritis with rheumatoid factor of multiple sites without organ or systems involvement; R05 Cough
CPT/HCPCS: 80053; 85025; 96413; J3262

== ENCOUNTER 2021-01-07 08:51 | Outpatient (CLI) | payer MEDICARE, OTHER, SELFPAY ==
[2021-01-07 09:00] VITALS: BP 133/72; PULSE 69; RESP 18; TEMP 36.4; O2SAT 98
[2021-01-07 09:30] VITALS: BP 114/54; PULSE 66; RESP 18; O2SAT 98
[2021-01-07 10:00] VITALS: BP 117/66; PULSE 57; RESP 18; O2SAT 99
[2021-01-07 10:30] VITALS: BP 122/68; PULSE 61; RESP 18; O2SAT 98
[2021-01-07 10:45] VITALS: BP 144/80; PULSE 54; RESP 18; O2SAT 99
== END 2021-01-07 10:45 | disposition home or self-care (01) ==
LOC: INF 08:51
PROVIDERS: Visit Provider Nurse Practitioner Family
DX: J84.10 Pulmonary fibrosis, unspecified (principal); M05.79 Rheumatoid arthritis with rheumatoid factor of multiple sites without organ or systems involvement; R05 Cough
CPT/HCPCS: 96413; J3262

== ENCOUNTER 2021-02-04 08:40 | Outpatient (CLI) | payer MEDICARE, OTHER, SELFPAY ==
[2021-02-04 08:46] VITALS: BMI 28.5
[2021-02-04 09:03] LABS: Basophils % 0.5 % (0.1-2.0); Eosinophils # 0.2 K/mm3 (0.0-0.4); Eosinophils % 2.2 % (0.1-12.0); Hematocrit 35.5 % (37.0-47.0); Lymphocytes # 1.6 K/mm3 (0.7-4.5); Mean Corpuscular HGB Conc 33.7 g/dL (31.8-35.4); Mean Corpuscular Hemoglobin 31.9 pg (27.0-31.2); Mean Corpuscular Volume 94.5 fl (81-99); Monocytes # 0.6 K/mm3 (0.1-1.0); Neutrophils # 6.1 K/mm3 (1.8-7.8); Neutrophils % 71.3 % (37.0-80.0); Platelet Count 180 K/mm3 (142-424); Red Blood Count 3.76 M/mm3 (4.20-5.40); Red Cell Distribution Width 13.1 % (11.5-17.5); White Blood Count 8.5 K/mm3 (4.8-10.8)
[2021-02-04 09:15] LABS: Alanine Aminotransferase 17 U/L (12-78); Albumin Level 3.9 g/dl (3.5-5.0); Albumin/Globulin Ratio 1.4 (1.1-1.8); Alkaline Phosphatase 54 U/L (38-126); Anion Gap 10.6 mEq/L (5-15); Aspartate Amino Transferase 25 U/L (14-36); Bilirubin,Total 0.6 mg/dl (0.2-1.3); Blood Urea Nitrogen 21 mg/dl (7-17); Calcium 9.4 mg/dl (8.4-10.2); Carbon Dioxide 27 mmol/L (22.0-30.0); Chloride 107 mmol/L (98-107); Creatinine Clearance Estimated 46 mL/min (50-200); Estimated Glomerular Filt Rate 53 ml/min (>60); GFR (African American) 64 ML/MIN (>60); Globulin 2.7 g/dL (1.3-3.2); Glucose 97 mg/dl (74-100); Potassium 3.6 mmoL/L (3.5-5.1); Sodium 141 mmol/L (136-145); Total Protein,Serum 6.6 g/dl (6.3-8.2)
[2021-02-04 10:00] VITALS: BP 134/67; PULSE 62; RESP 18; TEMP 36.3; O2SAT 95
[2021-02-04 10:15] VITALS: BP 134/74; PULSE 52; RESP 18
[2021-02-04 10:30] VITALS: BP 124/65; PULSE 52; RESP 18
[2021-02-04 10:45] VITALS: BP 138/72; PULSE 53; RESP 18
[2021-02-04 11:00] VITALS: BP 128/85; PULSE 55; RESP 18
== END 2021-02-04 11:25 | disposition home or self-care (01) ==
LOC: INF 08:43
PROVIDERS: Visit Provider Nurse Practitioner Family
DX: M05.79 Rheumatoid arthritis with rheumatoid factor of multiple sites without organ or systems involvement (principal); J84.10 Pulmonary fibrosis, unspecified; R05 Cough
CPT/HCPCS: 80053; 85025; 96413; J3262

== ENCOUNTER 2021-03-04 08:53 | Outpatient (CLI) | payer MEDICARE, OTHER, SELFPAY ==
[2021-03-04 09:40] VITALS: BP 152/67; PULSE 65; RESP 18; TEMP 36.6; O2SAT 96
[2021-03-04 10:00] VITALS: BP 150/74; PULSE 55; RESP 18
[2021-03-04 10:15] VITALS: BP 151/74; PULSE 56; RESP 18
[2021-03-04 10:30] VITALS: BP 148/68; PULSE 57; RESP 18
[2021-03-04 11:00] VITALS: BP 168/74; PULSE 55; RESP 18
== END 2021-03-04 11:00 | disposition home or self-care (01) ==
LOC: INF 08:53
PROVIDERS: Visit Provider Nurse Practitioner Family
DX: M05.79 Rheumatoid arthritis with rheumatoid factor of multiple sites without organ or systems involvement (principal); J84.10 Pulmonary fibrosis, unspecified; R05 Cough
CPT/HCPCS: 96413; J3262

== ENCOUNTER 2021-04-01 08:45 | Outpatient (CLI) | payer MEDICARE, OTHER, SELFPAY ==
[2021-04-01 08:55] VITALS: BMI 28.3
[2021-04-01 09:21] LABS: Basophils % 0.2 % (0.1-2.0); Eosinophils # 0.5 K/mm3 (0.0-0.4); Eosinophils % 5.5 % (0.1-12.0); Hematocrit 34.6 % (37.0-47.0); Hemoglobin 11.5 g/dL (12.2-16.2); Lymphocytes # 0.8 K/mm3 (0.7-4.5); Lymphocytes % 8.9 % (10-50); Mean Corpuscular HGB Conc 33.1 g/dL (31.8-35.4); Mean Corpuscular Hemoglobin 31.7 pg (27.0-31.2); Mean Corpuscular Volume 95.8 fl (81-99); Mean Platelet Volume 8.6 fl (7.4-10.4); Monocytes # 0.5 K/mm3 (0.1-1.0); Neutrophils # 6.6 K/mm3 (1.8-7.8); Neutrophils % 79.3 % (37.0-80.0); Platelet Count 163 K/mm3 (142-424); Red Blood Count 3.62 M/mm3 (4.20-5.40); Red Cell Distribution Width 13.4 % (11.5-17.5); White Blood Count 8.3 K/mm3 (4.8-10.8)
[2021-04-01 09:26] LABS: Chloride 106 mmol/L (98-107); Potassium 3.7 mmoL/L (3.5-5.1); Sodium 141 mmol/L (136-145)
[2021-04-01 09:29] LABS: Alanine Aminotransferase 17 U/L (12-78); Albumin Level 3.6 g/dl (3.5-5.0); Albumin/Globulin Ratio 1.4 (1.1-1.8); Alkaline Phosphatase 52 U/L (38-126); Anion Gap 9.7 mEq/L (5-15); Aspartate Amino Transferase 25 U/L (14-36); Bilirubin,Total 0.8 mg/dl (0.2-1.3); Blood Urea Nitrogen 20 mg/dl (7-17); Carbon Dioxide 29 mmol/L (22.0-30.0); Creatinine Clearance Estimated 45 mL/min (50-200); Estimated Glomerular Filt Rate 60 ml/min (>60); GFR (African American) 73 ML/MIN (>60); Globulin 2.6 g/dL (1.3-3.2); Total Protein,Serum 6.2 g/dl (6.3-8.2)
[2021-04-01 09:30] LABS: Glucose 121 mg/dl (74-100)
[2021-04-01 09:36] VITALS: BP 144/86; PULSE 73; RESP 17; O2SAT 99
[2021-04-01 10:05] VITALS: BP 135/82; PULSE 66; RESP 17; O2SAT 98
[2021-04-01 10:32] VITALS: BP 141/84; PULSE 74; RESP 17; O2SAT 98
[2021-04-01 11:00] VITALS: BP 139/76; PULSE 71; RESP 18; O2SAT 99
[2021-04-01 11:30] VITALS: BP 147/76; PULSE 83; RESP 17; O2SAT 98
[2021-04-01 11:50] VITALS: BP 142/86; PULSE 75; RESP 17; O2SAT 98
== END 2021-04-01 11:51 | disposition home or self-care (01) ==
LOC: INF 08:52
PROVIDERS: Visit Provider Nurse Practitioner Family
DX: M05.79 Rheumatoid arthritis with rheumatoid factor of multiple sites without organ or systems involvement (principal); J84.10 Pulmonary fibrosis, unspecified; I10 Essential (primary) hypertension
CPT/HCPCS: 80053; 85025; 96413; J3262

== ENCOUNTER 2021-05-06 08:50 | Outpatient (CLI) | payer MEDICARE, OTHER, SELFPAY ==
[2021-05-06 09:00] VITALS: BMI 26.9
[2021-05-06 09:15] VITALS: BP 140/81; PULSE 57; RESP 18; TEMP 36.4; O2SAT 96
[2021-05-06 09:27] LABS: Hemoglobin A1C 5.8 % (4.0-6.0)
[2021-05-06 09:46] VITALS: BP 135/80; PULSE 59; RESP 18; O2SAT 97
[2021-05-06 10:16] VITALS: BP 141/76; PULSE 58; RESP 18; O2SAT 96
[2021-05-06 11:02] VITALS: BP 148/77; PULSE 47; RESP 18; O2SAT 97
== END 2021-05-06 11:04 | disposition home or self-care (01) ==
LOC: INF 08:56
PROVIDERS: Nurse Practitioner Family; Visit Provider Nurse Practitioner Family
DX: M05.79 Rheumatoid arthritis with rheumatoid factor of multiple sites without organ or systems involvement (principal); J84.10 Pulmonary fibrosis, unspecified; R05 Cough; E11.9 Type 2 diabetes mellitus without complications; Z79.84 Long term (current) use of oral hypoglycemic drugs
CPT/HCPCS: 83036; 96413; J3262

== ENCOUNTER 2021-08-12 21:38 | Emergency (ER) | payer MEDICARE, OTHER, SELFPAY ==
[2021-08-12 21:40] VITALS: BP 138/78; PULSE 83; RESP 19; TEMP 36.8; O2SAT 96; BMI 28.3
[2021-08-12 22:44] LABS: Coronavirus 19, PCR Not Detected (NotDetected); Influenza A, PCR Not Detected (NotDetected); Influenza B, PCR Not Detected (NotDetected)
--- NOTE | 2021-08-12 22:47 | XR_ITS ---
PROCEDURE INFORMATION: Exam: XR Chest Exam date and time: 08/12/2021 10:47 PM Age: 81 years old Clinical indication: Shortness of breath; Patient HX: SOA, fever, chills; Additional info: Exertional SOA TECHNIQUE: Imaging protocol: XR of the chest. Views: 2 views. COMPARISON: CHESTWO CT chest wo con 01/23/2019 8:48 AM FINDINGS: Lungs: Chronic interstitial changes and peripheral fibrosis. Patchy airspace opacity within the right upper lung is suspicious for pneumonia. Calcified right lower lobe granuloma. Pleural spaces: No pleural effusion. No pneumothorax. Heart/Mediastinum: Heart size mildly enlarged. Aortic atherosclerosis. Calcified right hilar lymph nodes. Bones/joints: Unremarkable. IMPRESSION: 1. Patchy airspace disease near the right lung apex suspicious for pneumonia. Follow-up recommended to ensure resolution. 2. Chronic interstitial lung disease.
--- NOTE | 2021-08-12 22:51 | ECG_ITS ---
APPROVED REPORT Exam: Resting ECG HR:73 bpm ECG Measurements Heart Rate 73 AXES NE 134 P 53 QRSd 74 QRS -2 QT 374 T 23 QTc 412 Conclusion Normal sinus rhythm Minimal voltage criteria for LVH, may be normal variant ST abnormality, possible digitalis effect Abnormal ECG Electronically signed by : Mike Dominguez MD 08/14/2021 19:57:39
[2021-08-12 23:03] LABS: Microscopic, Urine URINE MICROSCOPIC (MICROSCOPIC)
[2021-08-12 23:06] VITALS: BP 135/87; PULSE 79; O2SAT 96
[2021-08-12 23:06] LABS: Basophils # 0.1 K/mm3 (0-0.2); Basophils % 1.1 % (0.1-2.0); Eosinophils # 0.2 K/mm3 (0.0-0.4); Hematocrit 38.3 % (37.0-47.0); Hemoglobin 12.7 g/dL (12.2-16.2); Lymphocytes # 1.7 K/mm3 (0.7-4.5); Mean Corpuscular HGB Conc 33.1 g/dL (31.8-35.4); Mean Corpuscular Hemoglobin 31.7 pg (27.0-31.2); Mean Corpuscular Volume 95.8 fl (81-99); Mean Platelet Volume 8.1 fl (7.4-10.4); Monocytes # 0.4 K/mm3 (0.1-1.0); Monocytes % 5.5 % (1.7-9.3); Neutrophils # 4.3 K/mm3 (1.8-7.8); Neutrophils % 64.4 % (37.0-80.0); Platelet Count 225 K/mm3 (142-424); Red Blood Count 3.99 M/mm3 (4.20-5.40); White Blood Count 6.6 K/mm3 (4.8-10.8)
[2021-08-12 23:06] LABS: Appearance,Urine SL CLOUDY (Clear); Bilirubin,Urine Negative (Negative); Blood, Urine Negative (Negative); Color,Urine YELLOW (Yellow); Glucose,Urine (UA) Negative (Negative); Ketones,Urine Negative (Negative); Leukocyte Esterase,Urine 1+ (Negative); Nitrate,Urine Negative (Negative); Protein,Urine Negative (Negative); Specific Gravity, Urine <= 1.005 (1.005-1.030); Urobilinogen,Urine 0.2 EU/dl (0.2)
--- NOTE | 2021-08-12 23:12 | HMH.EDSOB ---
ED Disposition Clinical Impression: Community acquired pneumonia Qualifiers: Laterality: right Lung location: upper lobe of lung Qualified Code(s): J18.9 - Pneumonia, unspecified organism Disposition: Home, Self-Care Condition on Discharge: Good Instructions: DI for Shortness of Breath Additional Instructions: fluids and keep appt this am Prescriptions: levoFLOXacin [Levaquin 500mg tab] 500 mg PO DAILY #7 tab Transmission Status: Pending to [facility] Referrals: Mike Dominguez MD [Primary Care Provider] - - Critical Care Critical Care Time: No Attestation: On 08/12/21, the high probability of a clinically significant, sudden or life threatening deterioration of the following system(s) required my full and direct attention, intervention and personal management. The time I documented below is in addition to time spent performing reported procedures but includes the following listed in this critical care notation. Medical Decision Making - Medical Records Medical records reviewed: Yes: I reviewed the patient's medical records. - Ciro Inquiry Pt receiving controlled substance: No Vital Signs: 08/12/21 21:40 08/12/21 23:06 08/12/21 23:30 Temperature 98.2 F Temperature Source Oral Pulse Rate 79 74 Pulse Rate [Right] 83 Respiratory Rate 19 Blood Pressure 135/87 139/88 Blood Pressure [Right Arm] 138/78 Blood Pressure Mean Blood Pressure Mean [Right Arm] 98 Blood Pressure Source [Right Arm] Automatic Cuff 02 Sat by Pulse Oximetry 96 96 96 Oxygen Delivery Method Room Air Room Air 08/13/21 00:39 08/13/21 01:00 Temperature Temperature Source Pulse Rate 76 68 Pulse Rate [Right] Respiratory Rate Blood Pressure 149/67 H 139/71 Blood Pressure [Right Arm] Blood Pressure Mean 74 Blood Pressure Mean [Right Arm] Blood Pressure Source [Right Arm] 02 Sat by Pulse Oximetry 95 94 L Oxygen Delivery Method Room Air - Lab Data Lab results reviewed: Yes: I reviewed the patient's lab results. Lab Results 08/12/21 21:51: SARS-CoV-2 (PCR) Not detected, Influenza A Untype (PCR) Not detected, Influenza Type B (PCR) Not detected 08/12/21 22:50: Urine Color Yellow, Urine Appearance Sl cloudy, Urine pH 6.0, Ur Specific [place] <= 1.005, Urine Protein Negative, Urine Glucose (UA) Negative, Urine Ketones Negative, Urine Blood Negative, Urine Nitrate Negative, Urine Bilirubin Negative, Urine Urobilinogen 0.2, Ur Leukocyte Esterase 1+ A, Urine RBC Occasional, Urine WBC 3-5, Ur Squamous Epith Cells 3-5, Urine Bacteria 1+ 08/12/21 22:58: WBC 6.6, RBC 3.99 L, Hgb 12.7, Hct 38.3, MCV 95.8, MCH 31.7 H, MCHC 33.1, RDW 13.0, Plt Count 225, MPV 8.1, Neut % (Auto) 64.4, Lymph % (Auto) 26.0, [place] % (Auto) 5.5, Eos % (Auto) 3.0, Baso % (Auto) 1.1, Neut # (Auto) 4.3, Lymph # (Auto) 1.7, [place] # (Auto) 0.4, Eos # (Auto) 0.2, Baso # (Auto) 0.1, ESR 94 H 08/12/21 22:58: Sodium 138, Potassium 3.6, Chloride 103, Carbon Dioxide 30, Anion Gap 8.6, BUN 15, Creatinine 0.90, Estimated Creat Clear 45, Estimated GFR 60, Est GFR ( Amer) 73, Glucose 132 H, Calcium 9.1, Magnesium 1.6, Total Bilirubin 0.5, AST 30, ALT 19, Alkaline Phosphatase 62, Troponin I < 0.01, C-Reactive Protein 79.3 H, NT-Pro-B Natriuret Pep 481 H, Total Protein 7.2, Albumin 3.7, Globulin 3.5 H, Albumin/Globulin Ratio 1.1, Procalcitonin 0.080 08/13/21 00:00: Lactate 1.4 Result diagrams: 08/12/21 22:58 08/12/21 22:58 Orders (Tests/Meds): ED MEDICATIONS Generic Name Dose Route Start Last Admin Trade Name Freq PRN Reason Stop Dose Admin Ceftriaxone Sodium 1 gm/ 50 mls @ 100 mls/hr 08/12/21 23:45 08/12/21 23:58 Sodium Chloride IV 08/26/21 23:44 100 mls/hr Q24H FRANCES Administration Sodium Chloride 1,000 mls @ 999 mls/hr 08/12/21 23:45 08/12/21 23:58 Sod Chlor 0.9% 1000ml Bag IV 08/13/21 00:45 999 mls/hr .Q1H1M FRANCES Administration Discontinued Medications Generic Name Dose Route Start Last Admin T
[2021-08-12 23:13] LABS: Alanine Aminotransferase 19 U/L (12-78); Albumin Level 3.7 g/dl (3.5-5.0); Albumin/Globulin Ratio 1.1 (1.1-1.8); Alkaline Phosphatase 62 U/L (38-126); Anion Gap 8.6 mEq/L (5-15); Aspartate Amino Transferase 30 U/L (14-36); Bilirubin,Total 0.5 mg/dl (0.2-1.3); Blood Urea Nitrogen 15 mg/dl (7-17); Calcium 9.1 mg/dl (8.4-10.2); Carbon Dioxide 30 mmol/L (22.0-30.0); Chloride 103 mmol/L (98-107); Creatinine Clearance Estimated 45 mL/min (50-200); Estimated Glomerular Filt Rate 60 ml/min (>60); GFR (African American) 73 ML/MIN (>60); Globulin 3.5 g/dL (1.3-3.2); Glucose 132 mg/dl (74-100); Magnesium 1.6 mg/dl (1.6-2.3); Potassium 3.6 mmoL/L (3.5-5.1); Sodium 138 mmol/L (136-145); Total Protein,Serum 7.2 g/dl (6.3-8.2)
[2021-08-12 23:19] LABS: C-Reactive Protein 79.3 mg/L (0-4)
[2021-08-12 23:19] LABS: Bacteria,Urine 1+ /lpf; RBC,Urine Occasional #/hpf (0-3)
[2021-08-12 23:28] LABS: NT Pro Brain Natriuretic Pep. 481 pg/mL (0-450)
[2021-08-12 23:29] LABS: Erythrocyte Sedimentation Rate 94 mm/hr (0-30)
[2021-08-12 23:30] VITALS: BP 139/88; PULSE 74; O2SAT 96
[2021-08-12 23:31] LABS: Troponin I < 0.01 ng/ml (0.00-0.034)
[2021-08-13 00:39] VITALS: BP 149/67; PULSE 76; O2SAT 95
[2021-08-13 00:40] LABS: Lactic Acid 1.4 mmol/L (0.7-2.1)
[2021-08-13 01:00] VITALS: BP 139/71; PULSE 68; O2SAT 94
[2021-08-13 01:34] VITALS: BP 153/90; PULSE 77; RESP 19; TEMP 36.7; O2SAT 96
== END 2021-08-13 01:46 | disposition home or self-care (01) ==
PROVIDERS: Emergency Provider Emergency Medicine; PCP Internal Medicine Adolescent Medicine
DX: J18.9 Pneumonia, unspecified organism (principal); Z88.2 Allergy status to sulfonamides; Z88.5 Allergy status to narcotic agent; Z88.6 Allergy status to analgesic agent; M19.90 Unspecified osteoarthritis, unspecified site; E03.9 Hypothyroidism, unspecified; I48.91 Unspecified atrial fibrillation; E11.9 Type 2 diabetes mellitus without complications; E78.5 Hyperlipidemia, unspecified; I10 Essential (primary) hypertension
CPT/HCPCS: 71046; 80053; 81001; 83605; 83735; 83880; 84145; 84484; 85025; 85651; 86140; 87040; 87086; 93005; 96365; 96366; 96375; 99284; C9803; U0003; U0005